=== PATIENT | female | born 1975 | race Caucasian/White ===

== ENCOUNTER 2017-06-05 20:43 | Emergency (ER) | payer OTHER ==
[~2017-06-05] VITALS: Ht 157.5 cm; Wt 62.1 kg
[~2017-06-05 20:43] MED LIST: FLEXERIL10 MG PO; MEDROL DOSEPAK4 MG PO; NEURONTIN100 MG; NO MEDICATIONS
[2017-06-05] MEDS ORDERED: REMERON (20:52)
== END 2017-06-05 21:58 | disposition home or self-care (01) ==
LOC: SED 20:43
DX: B02.9 Zoster without complications (principal); M25.511 Pain in right shoulder; Z32.01 Encounter for pregnancy test, result positive
CPT/HCPCS: 84703; 99283